=== PATIENT | female | born 1985 | race Caucasian/White ===

== ENCOUNTER 2017-08-20 07:04 | Emergency (ER) | payer OTHER ==
[~2017-08-20] VITALS: Ht 167.6 cm; Wt 56.7 kg
[~2017-08-20 07:04] MED LIST: CIPRO 500MG TA500 MG PO
--- NOTE | 2017-08-20 07:42 | ED GENERAL ADULT ---
History of Present Illness General Chief Complaint: Allergy Symptoms Stated Complaint: ? ALLERGIC REACTION,C/O HIVES Source: patient Exam Limitations: no limitations Vital Signs & Intake/Output Vital Signs & Intake/Output Vital Signs Date Time Temp Pulse Resp B/P B/P Pulse O2 O2 Flow FiO2 Mean Ox Delivery Rate 08/20 0711 979.8 99 18 104/68 97 Room Air Allergies Coded Allergies: Penicillins (Severe, ANAPHYLAXIS 08/20/17) hazelnut (Severe, ANAPHYLAXIS 08/20/17) tree nut (Severe, ANAPHYLAXIS 08/20/17) almond (Intermediate, HIVES, SOB 08/20/17) apple (Intermediate, HIVES 08/20/17) kiwi (Intermediate, HIVES 08/20/17) khalida (Intermediate, HIVES 08/20/17) peach (Intermediate, HIVES 08/20/17) strawberry (Intermediate, HIVES 08/20/17) Reconcile Medications Bupropion HCl (Wellbutrin XL) 150 MG TAB.ER.24H 1 TAB PO DAILY MENTAL HEALTH (Reported) Prednisone 20 MG TABLET 3 TAB PO DAILY ASTHMA Triage Note: PT STATES SHE HAS HIVES ALL OVER HER BODY. PT STATES SHE DOES HAVE FOOD ALLERGYS BUT SHE IS UNSURE IF SHE ATE ANYTHING SHE SHOULDM'T HAVE. Triage Nurses Notes Reviewed? yes : No Patient currently breastfeeds: No HPI: Patient is a 32-year-old female whose only past medical history is anxiety and food allergies as listed in the allergy section below, who presents today with diffuse hives. She reports that she had a BLT sandwich with english fries at a restaurant last night, and this morning awoke at 5 AM with hives all over her body. She has been given epinephrine at ED visits in the past for presumed anaphylaxis, however this was prior to her diagnosis of food allergies and her symptoms were at that time precipitated by eating whole almonds which returned she has a severe nut allergy to. Upon my initial encounter the patient is generally well-appearing with no acute distress, but clearly with uncomfortable pruritus. She exhibits no signs of respiratory distress and her vital signs are stable. Past History Travel History Traveled to [place] past 21 day No Medical History Any Pertinent Medical History? 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 No Review of Systems Review of Systems Constitutional: Reports: see HPI. EENTM: Reports: no symptoms. Respiratory: Denies: short of breath, stridor, wheezing. Cardiovascular: Reports: no symptoms. GI: Denies: abdominal pain, nausea, vomiting. Genitourinary: Reports: no symptoms. Musculoskeletal: Reports: no symptoms. Skin: Reports: rash. Neurological/Psychological: Reports: no symptoms. Hematologic/Endocrine: Reports: no symptoms. Immunologic/Allergic: Reports: no symptoms. All Other Systems: Reviewed and Negative Physical Exam Physical Exam General Appearance: well developed/nourished, no apparent distress, alert, awake , comfortable Comments: HEENT: Inspection of the head reveals a normocephalic cranium with no signs of trauma. Ophtho: Extraocular muscles are intact and pupils are equal and reactive to light bilaterally with no afferent pupillary defect. The sclera are noninjected , and there is no obvious discharge. Neck: The trachea is midline, there is no obvious asymmetry or mass over the thyroid, and there is no midline cervical spine tenderness Respiratory: The lungs are clear and equal to auscultation bilaterally without wheezes, rales, or rhonchi. The patient exhibits no signs of labored breathing. Cardiac: Regular rhythm and non-tachycardic without appreciable murmurs on auscultation. No obvious JVD. GI: Examination of the abdomen reveals no significant focal tenderness in any of the four quadrants. There is negative Lombardi's sign, negative McBurney's point tenderness, negative Pearl sign, negative Weems-Gonzalez sign, and no signs of peritonitis whatsoever on percussion or deep palpation. The skin is intact with no sign of trauma or infection. : Deferred Neuro: The patient is oriented to person, place, time, and situation, with no obvious focal motor deficits. There were no sensory deficits, and the patient exhibit purposeful movement of all 4 extremities. Cranial nerves II through XII are intact, and gait is normal. Behavioral: Calm and cooperative Dermatologic: Dermatologic examination reveals diffuse hives over the entirety of the body, worse on the anterior torso and thighs, more sporadic on the back and arms. No significant hives to the face or perioral region. Erythema also over the right knee and left second through fifth MCP joints of the hand. Core Measures ACS in differential dx? No CVA/TIA Diagnosis: No Sepsis Present: No Sepsis Focused Exam Completed? No Progress Differential Diagnoses I considered the following diagnoses in my evaluation of the patient: Food allergy, environmental allergy, anaphylaxis, contact dermatitis, chemical dermatitis, rheumatic disease, multiple other possibilities Plan of Care: Current Medications Sig/Lani Start time Last Medication Dose Stop Time Status Admin Diphenhydramine HCl 50 MG ONCE ONE 08/20 829 UNVr (Benadryl) 08/20 830 Initial ED EKG: none Comments: Patient is an otherwise healthy 32-year-old female who has had food allergies for a long time, and has seen an echo technician for confirmation of etiologies. Her symptoms mainly due fit with an allergic etiology as her hives are diffuse and characteristic of her prior episodes. However, the right-sided knee and left- sided MCP joint erythema is concerning for polyarthralgia, which in the setting of her reported eczema and allergy symptoms could represent an underlying rheumatologic etiology. Therefore, for the more likely allergic etiology I have administered dexamethasone intramuscularly here in the emergency department, and prescribed a prednisone burst to her pharmacy. However, I have also referred her back to her PCP and to a technical sales engineer for further workup. I have no concerns for anaphylaxis at this time as the patient has no wheezing, stridor, or throat/tongue itching. She understands the need to come back for any development of such symptoms. Medical screening examination otherwise negative, patient stable at time of discharge. Departure Departure Time of Disposition: 752 Disposition: HOME OR SELF CARE Condition: Stable Clinical Impression Primary Impression: Hives Referrals: Patient Has No Primary Care Dr (PCP/Family) Additional Instructions: Please follow-up with your primary physician and take the prednisone burst we prescribed to her pharmacy. We also provided with the number for rheumatology, and we recommend that you see them for consultation as well given your joint swelling. As discussed, please return to the emergency department immediately if you develop any worsening shortness of breath, wheezing, or any difficulty breathing whatsoever. Departure Forms: Customer Survey General Discharge Information Prescriptions: Current Visit Scripts Prednisone 3 TAB PO DAILY #15 TAB Critical Care Note Critical Care Note Critical Care Time: non-applicable
[2017-08-20] MEDS ORDERED: WELLBUTRIN XL150 M2 PO (07:55)
[2017-08-20] MEDS ORDERED: PREDNISONE20 M1 PO (07:59)
[2017-08-20 08:30] VITALS: BP 110/68
[2017-08-21] MEDS ORDERED: EPIPEN 2-P0.3 MG/0.3 IM (00:10)
[2017-08-21] MEDS ORDERED: HYDROXYZINE PAM50 M1 PO (00:10)
== END 2017-08-20 08:30 ==
LOC: ERH 07:04
DX: L50.9 Urticaria, unspecified (principal)
CPT/HCPCS: 96372; J1100

== ENCOUNTER 2017-08-20 23:16 | Emergency (ER) | payer OTHER ==
[~2017-08-20 23:16] MED LIST changes: +PREDNISONE20 M1 PO; +WELLBUTRIN XL150 M2 PO
--- NOTE | 2017-08-20 23:36 | ED SKIN/ALLERGY COMPLAINT ---
History of Present Illness General Chief Complaint: Allergy Symptoms Stated Complaint: PT HERE IN MORNING C/C ALLERGIC REACTION Vital Signs & Intake/Output Vital Signs & Intake/Output Vital Signs Date Time Temp Pulse Resp B/P B/P Pulse O2 O2 Flow FiO2 Mean Ox Delivery Rate 08/20 2323 98.0 84 20 116/78 98 Allergies Coded Allergies: Penicillins (Severe, ANAPHYLAXIS 08/20/17) hazelnut (Severe, ANAPHYLAXIS 08/20/17) tree nut (Severe, ANAPHYLAXIS 08/20/17) almond (Intermediate, HIVES, SOB 08/20/17) apple (Intermediate, HIVES 08/20/17) kiwi (Intermediate, HIVES 08/20/17) khalida (Intermediate, HIVES 08/20/17) peach (Intermediate, HIVES 08/20/17) strawberry (Intermediate, HIVES 08/20/17) Reconcile Medications Bupropion HCl (Wellbutrin XL) 150 MG TAB.ER.24H 1 TAB PO DAILY MENTAL HEALTH (Reported) Prednisone 20 MG TABLET 3 TAB PO DAILY ASTHMA Triage Note: PER PT SEEN THIS AM FOR ALLERGIC REACTION, GOT STEROID AND BENADRYL DID NOT GET TO FILL PRESCRIPTION BUT TOOK A DOSE OF PO STERIOD BENADRYL AT 6PM CONT TO ITCH : No Patient currently breastfeeds: No Past History Travel History Traveled to [place] past 21 day No Medical History Neurological: NONE EENT: NONE Cardiovascular: NONE Respiratory: NONE Gastrointestinal: NONE Hepatic: NONE Renal: NONE Musculoskeletal: NONE Psychiatric: anxiety, depression, DEPRESSION Endocrine: NONE Blood Disorders: 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 EENTM: Reports: no symptoms. Respiratory: Reports: no symptoms. Cardiovascular: Reports: no symptoms. GI: Reports: no symptoms. Genitourinary: Reports: no symptoms. Musculoskeletal: Reports: no symptoms. Skin: Reports: no symptoms. Neurological/Psychological: Reports: no symptoms. Hematologic/Endocrine: Reports: no symptoms. Immunologic/Allergic: Reports: no symptoms. All Other Systems: Reviewed and Negative Physical Exam Physical Exam General Appearance: well developed/nourished, mild distress Head: atraumatic Eyes: Bilateral: PERRL, EOMI. Ears, Nose, Throat: normal pharynx, normal ENT inspection, hearing grossly normal Neck: normal inspection, supple Respiratory: normal breath sounds Cardiovascular: regular rate/rhythm Gastrointestinal: soft, non-tender Back: normal inspection Extremities: normal inspection, normal range of motion, no edema Neurologic/Psych: awake, alert, oriented x 3, normal mood/affect Lymphatic: no anterior cervical maite Departure Departure Condition: Stable Referrals: Patient Has No Primary Care Dr (PCP/Family) Departure Forms: Customer Survey General Discharge Information
--- NOTE | 2017-08-20 23:58 | ED GENERAL ADULT ---
History of Present Illness General Chief Complaint: Allergy Symptoms Stated Complaint: PT HERE IN MORNING C/C ALLERGIC REACTION Source: patient Exam Limitations: no limitations Vital Signs & Intake/Output Vital Signs & Intake/Output Vital Signs Date Time Temp Pulse Resp B/P B/P Pulse O2 O2 Flow FiO2 Mean Ox Delivery Rate 08/20 2323 98.0 84 20 116/78 98 Allergies Coded Allergies: Penicillins (Severe, ANAPHYLAXIS 08/20/17) hazelnut (Severe, ANAPHYLAXIS 08/20/17) tree nut (Severe, ANAPHYLAXIS 08/20/17) almond (Intermediate, HIVES, SOB 08/20/17) apple (Intermediate, HIVES 08/20/17) kiwi (Intermediate, HIVES 08/20/17) khalida (Intermediate, HIVES 08/20/17) peach (Intermediate, HIVES 08/20/17) strawberry (Intermediate, HIVES 08/20/17) Reconcile Medications Bupropion HCl (Wellbutrin XL) 150 MG TAB.ER.24H 1 TAB PO DAILY MENTAL HEALTH (Reported) Epinephrine (Epipen 2-Esequiel) 0.3 MG/0.3 ML AUTO.INJCT 1 INJ IM X1 PRN SEVERE ALLERGIC REACTION Hydroxyzine Pamoate 50 MG CAPSULE 1 CAP PO 4 TIMES/DAY PRN HIVES/ALLERGIC REACTION Prednisone 20 MG TABLET 3 TAB PO DAILY ASTHMA Triage Note: PER PT SEEN THIS AM FOR ALLERGIC REACTION, GOT STEROID AND BENADRYL DID NOT GET TO FILL PRESCRIPTION BUT TOOK A DOSE OF PO STERIOD BENADRYL AT 6PM CONT TO ITCH Triage Nurses Notes Reviewed? yes Onset: Gradual Duration: day(s): Timing: recent history Injury Environment: home Severity: moderate : No Patient currently breastfeeds: No HPI: 32 yo woman h/o multiple allergies seen earlier this morning presents with recurrence of hives on trunk, arms, and legs, without wheezing or dyspnea. She notes that she received "an injection of steroids and some benadryl." She then was instructed to take prednisone 20mg three times a day. She was unable to fill the prescription until 7pm when she took prednisone 20mg. She has not yet taken any antihistamines. She is otherwise well. Past History Travel History Traveled to [place] past 21 day No Medical History Any Pertinent Medical History? 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 No Review of Systems Review of Systems Constitutional: Reports: no symptoms. EENTM: Reports: no symptoms. Respiratory: Reports: no symptoms. Cardiovascular: Reports: no symptoms. GI: Reports: no symptoms. Genitourinary: Reports: no symptoms. Musculoskeletal: Reports: no symptoms. Skin: Reports: no symptoms. Neurological/Psychological: Reports: no symptoms. Hematologic/Endocrine: Reports: no symptoms. Immunologic/Allergic: Reports: no symptoms. All Other Systems: Reviewed and Negative Physical Exam Physical Exam General Appearance: well developed/nourished, mild distress Head: atraumatic, normal appearance Eyes: Bilateral: normal appearance. Ears, Nose, Throat: hives on face Neck: normal inspection, supple, full range of motion Respiratory: normal breath sounds, chest non-tender, no respiratory distress, quiet respiration, lungs clear Cardiovascular: regular rate/rhythm Gastrointestinal: normal bowel sounds, soft, non-tender, no organomegaly Back: normal inspection, normal range of motion Extremities: hives on arms and legs Neurologic/Psych: no motor/sensory deficits, awake, alert, oriented x 3 Skin: intact, normal color, warm/dry Core Measures ACS in differential dx? No CVA/TIA Diagnosis: No Sepsis Present: No Sepsis Focused Exam Completed? No Progress Differential Diagnoses I considered the following diagnoses in my evaluation of the patient: urticaria vs other. Plan of Care: Current Medications Sig/Lani Start time Last Medication Dose Stop Time Status Admin Diphenhydramine HCl 50 MG ONCE ONE 08/21 14 UNVr (Benadryl) 08/22 15 Famotidine 20 MG ONCE ONE 08/21 14 UNVr (Pepcid) 08/22 15 Methylprednisolone 125 MG ONCE ONE 08/21 14 UNVr (Solu Medrol) 08/22 15 Initial ED EKG: none Departure Departure Disposition: HOME OR SELF CARE Condition: Stable Clinical Impression Primary Impression: Urticaria Referrals: Patient Has No Primary Care Dr (PCP/Family) Departure Forms: Customer Survey General Discharge Information Prescriptions: Current Visit Scripts Hydroxyzine Pamoate 1 CAP PO 4 TIMES/DAY PRN HIVES/ALLERGIC REACTION #90 CAP Ref 1 Epinephrine (Epipen 2-Esequiel) 1 INJ IM X1 PRN SEVERE ALLERGIC REACTION #1 KIT Comments 08/21/17, 1:21am... pt feeling better, still with some urticaria on face, but otherwise much improved... she feels comfortable going home... intensified treatment with rx for hydroxyzine, refilled epipen... 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 Critical Care Note Critical Care Note Critical Care Time: non-applicable
[2017-08-21] MEDS ORDERED: EPIPEN 2-P0.3 MG/0.3 IM (00:10)
[2017-08-21] MEDS ORDERED: HYDROXYZINE PAM50 M1 PO (00:10)
[2017-08-21 01:30] VITALS: BP 110/70
== END 2017-08-21 01:31 ==
LOC: ERH 23:16
DX: L50.9 Urticaria, unspecified (principal)
CPT/HCPCS: 96374; 96375; J1200; J2930